=== PATIENT | male | born 1950 | race Caucasian/White ===

== ENCOUNTER 2025-05-07 10:48 | Outpatient (CLI) | payer MEDICARE ==
[2025-05-07 11:46] LABS: #Basophils 0.05 10x3/uL (0.0-0.2); #Eosinophils 0.15 10x3/uL (0.0-0.7); #Monocytes 1.25 10x3/uL (0.11-0.59); #Neutrophils 6.58 10x3/uL (1.40-6.50); %Basophils 0.5 % (0.0-1.0); %Eosinophils 1.6 % (0.0-10.0); %Lymphocytes 9.8 % (21.0-51.0); %Monocytes 13.6 % (0.0-10.0); %Neutrophils 71.8 % (42.0-75.0); Hematocrit 42.8 % (42.0-52.0); Hemoglobin 13.9 g/dL (14.0-18.0); Mean Corpuscular Hemoglobin 31.4 pg (27.0-31.0); Mean Corpuscular Volume 96.6 fL (78.0-98.0); Platelet Count 298 10x3/uL (130-400); Red Blood Cell (RBC) Count 4.43 mill/uL (4.70-6.10); White Blood Cell (WBC) Count 9.18 10x3/uL (4.8-10.8)
[2025-05-07 12:01] LABS: INR-International Normal Ratio 1.0; Prothrombin Time 12.9 sec (12.0-14.7)
[2025-05-07 12:04] LABS: ALT (SGPT) 13 U/L (Less than 45); AST (SGOT) 22 U/L (11-34); Albumin 3.2 g/dL (3.1-4.5); Alkaline Phosphatase 110 U/L (40-110); Anion Gap 14 mmol/L (10-20); BUN (Urea Nitrogen) 16 mg/dL (8.4-25.7); Bilirubin, Total 0.6 mg/dL (0.3-1.2); Calc. Creatinine Clearance 0 mL/min (70-130); Calcium 9.6 mg/dL (7.8-10.44); Carbon Dioxide 29 mmol/L (23-31); Chloride 98 mmol/L (98-107); Globulin 3.2 g/dL (2.4-3.5); Glucose 94 mg/dL (83-110); Potassium 3.2 mmol/L (3.5-5.1); Sodium 138 mmol/L (136-145)
== END 2025-05-07 10:49 | disposition home or self-care (01) ==
LOC: LABBT 10:48
PROVIDERS: ATTEND Student in an Organized Health Care Education/Training Program
DX: Z01.812 Encounter for preprocedural laboratory examination (principal); M87.051 Idiopathic aseptic necrosis of right femur
CPT/HCPCS: 87081

== ENCOUNTER 2025-05-14 07:29 | Inpatient (IN) | payer MEDICARE ==
[2025-05-07 11:00] VITALS: BMI 27.8
[2025-05-14] MEDS ORDERED: Tranexamic Acid 1,000 MG/10 ML VIAL ONE (07:54)
[2025-05-14] MEDS ORDERED: Acetaminophen 500 MG TAB ONE (07:55)
[2025-05-14] MEDS ORDERED: Vancomycin HCl 1.5 GM VIAL ONE (07:55)
[2025-05-14] MEDS ORDERED: fentaNYL PF 100 MCG/2 ML SYRINGE ONE (10:34)
[2025-05-14] MEDS ORDERED: Rocuronium Bromide 10 MG/ML (10ML VIAL) ONE (10:34)
[2025-05-14] MEDS ORDERED: Ondansetron PF 4 MG/2 ML Vial ONE (10:34)
[2025-05-14] MEDS ORDERED: PROPOFOL 20 ML ONE (10:34)
[2025-05-14] MEDS ORDERED: Lidocaine 2% 6 ML (Jelly) SYR ONE (10:34)
[2025-05-14] MEDS ORDERED: Lidocaine 1% PF 5 ML VIAL ONE (10:34)
[2025-05-14] MEDS ORDERED: CEFAZOLIN 2 GM VIAL ONE (10:36)
[2025-05-14] MEDS ORDERED: SUCCINYLCHOLINE/SOD CL,ISO/PF 200 MG/10 ML SYRINGE FS ONE (10:49)
[2025-05-14] MEDS ORDERED: SUGAMMADEX SODIUM 200 MG/2 ML VIAL ONE (11:12)
[2025-05-14] MEDS ORDERED: Ondansetron PF 4 MG/2 ML Vial IVP PRN (12:12)
[2025-05-14] MEDS ORDERED: HYDROcodone/Acetaminophen 10/325 mg Tablet PO PRN ×2 (12:15)
[2025-05-14] MEDS: Acetaminophen 325 MG TAB PO SCH (15:29)
[2025-05-14] MEDS: Nystatin Powder 15 GM BOT TOP SCH (15:29)
[2025-05-14] MEDS: Famotidine 20 MG TAB PO SCH (21:02)
[2025-05-15] MEDS: hydrALAZINE 20 MG/ML VIAL SLOW IVP PRN (05:03)
[2025-05-15 05:42] LABS: #Basophils Less than 0.03 10x3/uL (0.0-0.2); #Eosinophils Less than 0.03 10x3/uL (0.0-0.7); #Monocytes 0.43 10x3/uL (0.11-0.59); #Neutrophils 9.45 10x3/uL (1.40-6.50); %Basophils 0.1 % (0.0-1.0); %Eosinophils 0.0 % (0.0-10.0); %Lymphocytes 6.7 % (21.0-51.0); %Monocytes 4.0 % (0.0-10.0); %Neutrophils 88.6 % (42.0-75.0); Hematocrit 38.7 % (42.0-52.0); Hemoglobin 12.9 g/dL (14.0-18.0); Mean Corpuscular Hemoglobin 31.2 pg (27.0-31.0); Mean Corpuscular Volume 93.7 fL (78.0-98.0); Platelet Count 253 10x3/uL (130-400); Red Blood Cell (RBC) Count 4.13 mill/uL (4.70-6.10); White Blood Cell (WBC) Count 10.66 10x3/uL (4.8-10.8)
[2025-05-15 05:56] LABS: Vancomycin, Random 12.1 ug/mL (See Comment)
[2025-05-15 06:00] LABS: Anion Gap 12 mmol/L (10-20); BUN (Urea Nitrogen) 16 mg/dL (8.4-25.7); Calc. Creatinine Clearance 45 mL/min (70-130); Calcium 8.8 mg/dL (7.8-10.44); Carbon Dioxide 28 mmol/L (23-31); Chloride 102 mmol/L (98-107); Glucose 115 mg/dL (83-110); Potassium 3.4 mmol/L (3.5-5.1); Sodium 139 mmol/L (136-145)
[2025-05-15] MEDS: Vancomycin HCl 750 MG in Sodium Chloride 0.9% 250 ML 250 ML IVPB SCH (09:00)
[2025-05-15] MEDS: Metoprolol Succinate XL 100 MG ER.TAB PO SCH (09:01)
[2025-05-15] MEDS: Allopurinol 300 MG TAB PO SCH (09:01)
[2025-05-15] MEDS: Lisinopril 20 MG TAB PO SCH (09:01)
[2025-05-16 06:13] LABS: Calc. Creatinine Clearance 48.0 mL/min (70-130)
[2025-05-16] MEDS: Famotidine 20 MG TAB PO SCH (09:00)
[2025-05-16] MEDS: Vancomycin 1 GM Premix Bag IVPB SCH (09:59)
[2025-05-16] MEDS ORDERED: hydrALAZINE 20 MG/ML VIAL SLOW IVP PRN (10:40)
[2025-05-16] MEDS: NIFEdipine XL 30 MG ER.TAB PO SCH (11:30)
[2025-05-16] MEDS ORDERED: fentaNYL PF 100 MCG/2 ML SYRINGE ONE ×3 (11:47→15:11)
[2025-05-16] MEDS ORDERED: PROPOFOL 20 ML ONE (11:47)
[2025-05-16] MEDS ORDERED: Rocuronium Bromide 10 MG/ML (10ML VIAL) ONE (11:48)
[2025-05-16] MEDS ORDERED: Lidocaine 1% PF 5 ML VIAL ONE (11:48)
[2025-05-16] MEDS ORDERED: Tranexamic Acid 1,000 MG/10 ML VIAL ONE (12:27)
[2025-05-16] MEDS ORDERED: CEFAZOLIN 1 GM VIAL ONE (12:35)
[2025-05-16] MEDS ORDERED: Sevoflurane 250 ML INH ANEST BOTTLE ONE (12:59)
[2025-05-16] MEDS ORDERED: SUGAMMADEX SODIUM 200 MG/2 ML VIAL ONE (14:55)
[2025-05-16] MEDS ORDERED: Ondansetron PF 4 MG/2 ML Vial ONE (14:56)
[2025-05-16] MEDS ORDERED: HYDROmorphone 2 MG/ML VIAL ONE (15:35)
[2025-05-16] MEDS ORDERED: HYDROmorphone 0.5 MG/0.5 ML SYRINGE ONE (16:12)
[2025-05-16] MEDS ORDERED: oxyCODONE 5 MG TAB PO PRN (17:16)
[2025-05-16] MEDS ORDERED: Ondansetron PF 4 MG/2 ML Vial IVP PRN (17:16)
[2025-05-16] MEDS ORDERED: diphenhydrAMINE 25 MG CAP PO PRN (17:16)
[2025-05-16] MEDS: Acetaminophen 500 MG TAB PO SCH (19:38)
[2025-05-16] MEDS: Ferrous Gluconate 324 MG TAB PO SCH (20:45)
[2025-05-16] MEDS: Senokot S 8.6-50 MG TAB PO SCH (20:47)
[2025-05-17 05:51] LABS: Hematocrit 35.5 % (42.0-52.0); Hemoglobin 11.4 g/dL (14.0-18.0); Mean Corpuscular Hemoglobin 31.4 pg (27.0-31.0); Mean Corpuscular Volume 97.8 fL (78.0-98.0); Platelet Count 270 10x3/uL (130-400); Red Blood Cell (RBC) Count 3.63 mill/uL (4.70-6.10); White Blood Cell (WBC) Count 15.45 10x3/uL (4.8-10.8)
[2025-05-17 06:07] LABS: Anion Gap 16 mmol/L (10-20); BUN (Urea Nitrogen) 22 mg/dL (8.4-25.7); Calc. Creatinine Clearance 25 mL/min (70-130); Calcium 8.4 mg/dL (7.8-10.44); Carbon Dioxide 24 mmol/L (23-31); Chloride 103 mmol/L (98-107); Glucose 112 mg/dL (83-110); Potassium 3.3 mmol/L (3.5-5.1); Sodium 140 mmol/L (136-145)
[2025-05-17] MEDS: Multivitamin W/ Minerals 1 TAB PO SCH (11:01)
[2025-05-17] MEDS: oxyCODONE 5 MG TAB PO PRN (11:02)
[2025-05-17] MEDS: Aspirin 81 mg Enteric Coated Tablet PO SCH (11:04)
[2025-05-17] MEDS: NIFEdipine XL 30 MG ER.TAB PO SCH (11:06)
[2025-05-18 06:19] LABS: Hematocrit 32.3 % (42.0-52.0); Hemoglobin 10.5 g/dL (14.0-18.0); Mean Corpuscular Hemoglobin 31.3 pg (27.0-31.0); Mean Corpuscular Volume 96.4 fL (78.0-98.0); Platelet Count 189 10x3/uL (130-400); Red Blood Cell (RBC) Count 3.35 mill/uL (4.70-6.10); White Blood Cell (WBC) Count 12.52 10x3/uL (4.8-10.8)
[2025-05-18 06:20] LABS: #Basophils Less than 0.03 10x3/uL (0.0-0.2); #Eosinophils 0.04 10x3/uL (0.0-0.7); #Monocytes 0.96 10x3/uL (0.11-0.59); #Neutrophils 10.50 10x3/uL (1.40-6.50); %Basophils 0.1 % (0.0-1.0); %Eosinophils 0.3 % (0.0-10.0); %Lymphocytes 5.0 % (21.0-51.0); %Monocytes 7.8 % (0.0-10.0); %Neutrophils 85.9 % (42.0-75.0); Hematocrit 32.5 % (42.0-52.0); Hemoglobin 10.4 g/dL (14.0-18.0); Mean Corpuscular Hemoglobin 31.0 pg (27.0-31.0); Mean Corpuscular Volume 96.7 fL (78.0-98.0); Platelet Count 192 10x3/uL (130-400); Red Blood Cell (RBC) Count 3.36 mill/uL (4.70-6.10); White Blood Cell (WBC) Count 12.23 10x3/uL (4.8-10.8)
[2025-05-18 06:31] LABS: Anion Gap 11 mmol/L (10-20); BUN (Urea Nitrogen) 24 mg/dL (8.4-25.7); Calc. Creatinine Clearance 28 mL/min (70-130); Calcium 8.0 mg/dL (7.8-10.44); Carbon Dioxide 28 mmol/L (23-31); Chloride 99 mmol/L (98-107); Glucose 91 mg/dL (83-110); Potassium 3.2 mmol/L (3.5-5.1); Sodium 135 mmol/L (136-145)
[2025-05-18] MEDS: Pantoprazole 40 MG DR.TAB PO SCH (09:30)
[2025-05-18] MEDS: Methocarbamol 500 MG TAB PO PRN (16:00)
[2025-05-18 19:02] LABS: Protein, Urine Random Quant 32.0 mg/dL (1-14)
[2025-05-19 06:25] LABS: Hematocrit 29.9 % (42.0-52.0); Hemoglobin 9.5 g/dL (14.0-18.0); Mean Corpuscular Hemoglobin 30.9 pg (27.0-31.0); Mean Corpuscular Volume 97.4 fL (78.0-98.0); Platelet Count 188 10x3/uL (130-400); Red Blood Cell (RBC) Count 3.07 mill/uL (4.70-6.10); White Blood Cell (WBC) Count 11.80 10x3/uL (4.8-10.8)
[2025-05-19 06:49] LABS: Anion Gap 10 mmol/L (10-20); BUN (Urea Nitrogen) 21 mg/dL (8.4-25.7); Calc. Creatinine Clearance 40 mL/min (70-130); Calcium 8.1 mg/dL (7.8-10.44); Carbon Dioxide 26 mmol/L (23-31); Chloride 100 mmol/L (98-107); Glucose 85 mg/dL (83-110); Potassium 3.0 mmol/L (3.5-5.1); Sodium 133 mmol/L (136-145)
[2025-05-19 20:32] VITALS: BP 135/77; TEMP 98.1
== END 2025-05-19 20:35 | disposition home or self-care (01) | DRG 470 ==
LOC: SDC 07:29 → SURG B 13:27
PROVIDERS: ADMIT Student in an Organized Health Care Education/Training Program; ATTEND Internal Medicine Critical Care Medicine
PROC: 0SR904Z Replacement of Right Hip Joint with Ceramic on Polyethylene Synthetic Substitute, Open Approach (ICD-10-PCS; principal; 2025-05-16)
PROC: 3E03329 Introduction of Other Anti-infective into Peripheral Vein, Percutaneous Approach (ICD-10-PCS; 2025-05-16)
DX: M87.051 Idiopathic aseptic necrosis of right femur (principal); L03.115 Cellulitis of right lower limb; N17.9 Acute kidney failure, unspecified; E87.1 Hypo-osmolality and hyponatremia; B35.6 Tinea cruris; I12.9 Hypertensive chronic kidney disease with stage 1 through stage 4 chronic kidney disease, or unspecified chronic kidney disease; N18.30 Chronic kidney disease, stage 3 unspecified; M10.9 Gout, unspecified; I95.9 Hypotension, unspecified; R33.9 Retention of urine, unspecified; E87.6 Hypokalemia; Z79.899 Other long term (current) drug therapy
CPT/HCPCS: 36415; 72170; 76770; 80048; 80202; 82565; 82570; 83970; 84156; 85025; 85027; C1776; J0360; J0690; J1100; J1171; J2704; J3373; J7030; J7050; J7120

== ENCOUNTER 2025-07-12 13:51 | Outpatient (CLI) | payer MEDICARE | END 2025-07-12 13:52 | disposition home or self-care (01) | LOC: BICMRI 13:51 | PROVIDERS: ATTEND Student in an Organized Health Care Education/Training Program | DX: M24.811 Other specific joint derangements of right shoulder, not elsewhere classified (principal); M75.121 Complete rotator cuff tear or rupture of right shoulder, not specified as traumatic; S46.111A Strain of muscle, fascia and tendon of long head of biceps, right arm, initial encounter; S43.431A Superior glenoid labrum lesion of right shoulder, initial encounter; M75.81 Other shoulder lesions, right shoulder ==